=== PATIENT | female | born 1975 | race Caucasian/White ===

== ENCOUNTER 2016-04-07 17:09 | Emergency (ER) | payer OTHER ==
[~2016-04-07] VITALS: Ht 167.6 cm; Wt 77.1 kg
--- NOTE | 2016-04-07 17:36 | ED GI/GU/ABDOMINAL COMPLAINT ---
History of Present Illness General Chief Complaint: Abdominal Pain/Flank Pain Stated Complaint: LEFT FLANK PAIN Source: patient, old records Exam Limitations: no limitations Vital Signs & Intake/Output Vital Signs & Intake/Output Vital Signs Date Time Temp Pulse Resp B/P Pulse O2 O2 Flow FiO2 Ox Delivery Rate 04/07 2011 96.7 87 18 118/78 95 Room Air 04/07 1919 97.0 83 18 126/71 99 Room Air 04/07 1811 Room Air 04/07 1723 97.9 85 16 139/83 100 Room Air Allergies Coded Allergies: coconut (throat closes 09/05/15) morphine (GI DISTRESS 09/08/15) Reconcile Medications Fluoxetine HCl 40 MG CAPSULE 40 MG PO DAILY MENTAL HEALTH (Reported) Ondansetron HCl (Zofran) 4 MG TABLET 1 TAB PO Q6-8P PRN nausea Oxycodone HCl/Acetaminophen (Percocet 5-325 MG Tablet) 5 MG-325 MG TABLET 1 TAB PO TID PRN PAIN Triage Note: PT HAVING SHARP PAIN LEFT SIDE WITH HX OF KIDNEY STONES. PT STATES IT FEELS LIKE ITS KIDNEY STONES PT STATES SHE FEELS LIKE SHE IS GOING TO VOMIT. Triage Nurses Notes Reviewed? yes LMP (ages 10-50): now ? N Is pt currently ? No Onset: Abrupt Duration: day(s): (1), constant, waxing and waning Timing: recent history Quality/Severity: aching, mild, moderate, sharpness Severity Numbers: 7 Location: left flank Radiation: LLQ Activities at Onset: none Prior Abdominal Problems: similar symptoms HPI: 40-year-old female with history of kidney stones which have passed on their own presents complaining of sudden onset left flank pain rating to the left lower quadrant since earlier today area G denies any recent injury or trauma and states this feels similar to her kidney stones. She also reports to nausea no vomiting no diarrhea no urinary symptoms. Her menstrual cycle began today as scheduled. She denies any abnormal vaginal discharge no fever no chills. She has not attempted to take anything for her symptoms. No history of abdominal surgeries in the past no chest pain or shortness of breath or chills. (DARNELL GALLEGOS,LAUREN) Past History Travel History Traveled to [place] past 21 day No Medical History Any Pertinent Medical History? see below for history Neurological: migraine Renal: KIDNEY STONES JOY LOADER/Reproductive: POST DEPRESSION Surgical History Surgical History: non-contributory Psychosocial History What is your primary language Thai Tobacco Use: Never used ETOH Use: denies use Illicit Drug Use: denies illicit drug use Family History Hx Contributory? No (LAUREN CAMP) Review of Systems Review of Systems Constitutional: Reports: see HPI. All Other Systems: Reviewed and Negative Comments Review of systems: See HPI, All other systems negative. Constitutional, no chills no fever, no malaise HEENT: no sore throat no congestion Cardiovascular: No chest pain , no palpitation Skin, no jaundice no rashes, no change in skin Respiratory: No dyspnea no cough no sputum GI: nausea no vomiting, no diarrhea, : No dysuria Muscle skeletal: No joint pain, no back pain, no neck pain, Neurologic: No numbness no headache Psych: No stress Heme/endocrine: No bruising no bleeding Immunology: No lymphadenopathy, (LAUREN CAMP) Physical Exam Physical Exam General Appearance: well developed/nourished, no apparent distress, alert, awake Gastrointestinal: soft, non-tender Comments: Well-developed well-nourished person in no acute distress HEENT: Normal EENT exam; PERRL, EOMI, HEAD is atraumatic. moist mucous membranes. Neck: Supple, normal range of motion Back: Nontender, no CVA tenderness. Full range of motion Cardiovascular: Regular rate and rhythms no murmurs rubs Respiratory: No respiratory distress. Patient speaking in full complete sentences. Breath sounds clear to auscultation bilaterally: NO W/R/R Abdomen: Soft, nontender nondistended, no appreciable organomegaly. Normal bowel sounds. No rebound/guarding, Extremity: No edema, full range of motion of extremities Neuro: Alert oriented x3, motor sensory normal, There were no obvious focal neurologic abnormalities. Skin: No appreciable rash on exposed skin, skin is warm and dry. Psych: Mood and affect is normal, memory and judgment is normal. Core Measures ACS in differential dx? No Severe Sepsis Present: No Septic Shock Present: No (LAUREN CAMP) Progress Differential Diagnosis: appendicitis, biliary colic, bowel obstruction, colon cancer, diverticulitis, gastritis, hepatitis, inflamm bowel dis, kidney stone, pancreatitis, peptic ulcer, UTI/pyelo Plan of Care: Orders Procedure Date/time Status LIPASE 01/11 1745 Complete AMYLASE 04/07 1744 Complete HUMAN BETA HCG SCREEN 04/07 173 Complete COMPREHENSIVE METABOLIC PANEL 04/07 173 Complete CBC WITHOUT DIFFERENTIAL 04/07 1735 Complete URINALYSIS 04/07 1726 Complete Laboratory Tests 04/07/16 1935: Urine Color STRAW, Urine Clarity CLEAR, Urine pH 6.5, Ur Specific [place] 1.015, Urine Protein NEG, Urine Ketones NEG, Urine Nitrite NEG, Urine Bilirubin NEG, Urine Urobilinogen 0.2, Ur Leukocyte Esterase NEG, Ur Microscopic SEDIMENT EXAMINED, Urine RBC 15-25 H, Ur Epithelial Cells RARE, Urine Hemoglobin LARGE H, Urine Glucose NEG 04/07/16 1745: Anion Gap 14, Estimated GFR > 60, BUN/Creatinine Ratio 22.5, Glucose 143 H, Calcium 9.7, Total Bilirubin 0.3, AST 17, ALT 14, Alkaline Phosphatase 85, Total Protein 7.5, Albumin 4.6, Globulin 2.9, Albumin/Globulin Ratio 1.6, Amylase 34, Lipase 40, Total Beta HCG NEGATIVE, CBC w Diff NO MAN DIFF REQ, RBC 4.09 L, MCV 84.3, MCH 28.4, RDW 13.0, MPV 7.2 L, Gran % 75.6 H, Lymphocytes % 18.6 L, Monocytes % 4.8, Eosinophils % 0.6, Basophils % 0.4, Absolute Granulocytes 5.3, Absolute Lymphocytes 1.3, Absolute Monocytes 0.3, Absolute Eosinophils 0, Absolute Basophils 0, PUBS MCHC 33.7 04/07/16 1741: Amylase Cancelled, Lipase Cancelled Labs ordered old records reviewed patient medicated with Toradol 30 IV IV fluids 04/07/2016 7:33:55 PM casing CAT scan was reviewed and discussed with Dr. Dumont. I discussed the patient her CAT scan results she feels improved with the Toradol. We will by mouth challenge her, if symptoms are improved she will follow up with urology in the morning 04/07/2016 8:09:11 PM patient feeling improved with Percocet, tolerating by mouth she'll follow with Dr. Espitia tomorrow (LAUREN CAMP) Diagnostic Imaging: Viewed by Me: CT Scan. Discussed w/RAD: CT Scan. Radiology Impression: PATIENT: EFE HORNER PRESENT AGE: 40 PATIENT ACCOUNT NO: [id number] : 77 LOCATION: [facility] ([place]) ORDERING PHYSICIAN: LAUREN GALLEGOS SERVICE DATE: 04/07/16 EXAM TYPE: CAT - CT ABD & PELVIS W/O IV CONTRAS EXAMINATION: CT ABDOMEN AND PELVIS WITHOUT CONTRAST CLINICAL INFORMATION: 40-year-old female with left flank pain. COMPARISON: None. TECHNIQUE: Multidetector volumetric imaging was performed from the superior aspect of the liver through the pubic symphysis. Sagittal and coronal reformatted images were obtained on the technologist's workstation. DLP: 393 mGy -cm. FINDINGS: Green Belt view shows a 1 cm calculus in the vicinity of the left kidney. LUNG BASES: The visualized lung bases are unremarkable. LIVER, GALLBLADDER, AND BILIARY TREE: The liver is normal in size, shape, and attenuation. No focal hepatic lesion or biliary ductal dilatation is present. The gallbladder is normal in size demonstrating no signs of inflammation. However, 2 punctate gallstones are present in the gallbladder lumen. PANCREAS: Unremarkable. SPLEEN: Unremarkable. A small accessory spleen is present in the splenic hilum. ADRENAL GLANDS: Unremarkable. KIDNEYS AND URETERS: Right kidney is normal except for a tiny nonobstructing punctate stone in the upper pole. Perirenal spaces are normal. The left kidney shows moderate hydronephrosis and hydroureter . The obstruction is thought to be caused by a tiny 3 mm stone just proximal to the left UVJ. The visualization of this particular stone is complicated by the presence of numerous phleboliths in the area; interpretation therefore is challenging. A 1.2 cm calculus is located in the left renal pelvis. 3 additional punctate nonobstructing stones are present in the left kidney, upper pole, midportion, and lower pole respectively. BLADDER: Unremarkable. No stones. GASTROINTESTINAL TRACT: The small and large bowel are unremarkable. The appendix is unremarkable. ABDOMINAL WALL: No significant hernia is appreciated. LYMPH NODES: Normal. VASCULAR: Unremarkable. PELVIC VISCERA: Unremarkable. A tampon is present in the vagina. OSSEOUS STRUCTURES: Unremarkable. IMPRESSION: 1. Moderate left-sided hydroureteronephrosis thought to be secondary to a 3 mm calculus just proximal to the left UVJ. 2. Large (1.2 cm) renal calculus in the left renal pelvis. This is visualized on the plain film. Three additional punctate stones in the left kidney. 3. Cholelithiasis. DICTATED BY: CORWIN ALLAN MD DATE/TIME DICTATED:04/07/161858 AWNING ERECTOR:JUNE DATE/ TIME TRANSCRIBED:04/07/161858 CONFIDENTIAL, DO NOT COPY WITHOUT APPROPRIATE AUTHORIZATION. <Electronically signed in Other Vendor System> SIGNED BY: CORWIN ALLAN MD 04/07/161915 Initial ED EKG: none (LAUREN CAMP) Departure Departure Time of Disposition: 2000 Disposition: HOME OR SELF CARE Condition: Stable Clinical Impression Primary Impression: Kidney stone Referrals: LUCERO GERMAN DO (PCP/Family) MARIANNE ESPITIA MD Additional Instructions: follow up with urologist dr espitia tomorrow. percocet for breakthrough pain- use caution as this is a narcotic and will make you drowsy no driving or drinking alcohol while taking. Motrin 800 mg every 8 hours as needed Zofran as needed for nausea. These prescriptions were sent to your pharmacy. Return anytime sooner if symptoms worsen or U have any other concerns Departure Forms: Customer Survey General Discharge Information Prescriptions: Current Visit Scripts Oxycodone HCl/Acetaminophen (Percocet 5-325 MG Tablet) 1 TAB PO TID PRN PAIN #10 TAB Ondansetron HCl (Zofran) 1 TAB PO Q6-8P PRN nausea #10 TAB (LAUREN CAMP) PA/MINERAL RESOURCES INSPECTOR Co-Sign Statement Statement: ED Attending supervision documentation- [] I saw and evaluated the patient. I have also reviewed all the pertinent lab results and diagnostic results. I agree with the findings and the plan of care as documented in the PA's/MINERAL RESOURCES INSPECTOR's documentation. [X] I have reviewed the ED Record and agree with the PA's/MINERAL RESOURCES INSPECTOR's documentation. [] Additions or exceptions (if any) to the PAs/MINERAL RESOURCES INSPECTOR's note and plan are summarized below: [] (MONTY ANAYA,NALLELY Pelletier)
[2016-04-07 17:56] LABS: ABSOLUTE BASOPHIL COUNT 0 /CUMM (0.0-0.2); ABSOLUTE EOSINOPHIL COUNT 0 /CUMM (0.0-0.7); ABSOLUTE GRANULOCYTE CT 5.3 /CUMM (1.4-6.5); ABSOLUTE LYMPH COUNT 1.3 /CUMM (1.2-3.4); ABSOLUTE MONOCYTE COUNT 0.3 /CUMM (0.10-0.60); BASOPHIL % 0.4 % (0.0-2.0); EOSINOPHIL % 0.6 % (0-5); GRANULOCYTE % 75.6 % (42.2-75.2); HEMATOCRIT 34.5 % (37-47); MEAN CORPUSCULAR HGB 28.4 PG (27.0-31.0); MEAN CORPUSCULAR HGB CONC 33.7 G/DL (33.0-37.0); MEAN CORPUSCULAR VOLUME 84.3 FL (81.0-99.0); MEAN PLATELET VOLUME 7.2 FL (7.4-10.4); PLATELET COUNT 373 /CUMM (130-400); RED BLOOD CELL CT 4.09 /CUMM (4.20-5.40); WHITE BLOOD CELL COUNT 7.1 /CUMM (4.8-10.8)
--- NOTE | 2016-04-07 19:16 | CT SCAN REPORT ---
EXAMINATION: CT ABDOMEN AND PELVIS WITHOUT CONTRAST CLINICAL INFORMATION: 40-year-old female with left flank pain. COMPARISON: None. TECHNIQUE: Multidetector volumetric imaging was performed from the superior aspect of the liver through the pubic symphysis. Sagittal and coronal reformatted images were obtained on the technologist's workstation. DLP: 393 mGy-cm. FINDINGS: Carriage Setter view shows a 1 cm calculus in the vicinity of the left kidney. LUNG BASES: The visualized lung bases are unremarkable. LIVER, GALLBLADDER, AND BILIARY TREE: The liver is normal in size, shape, and attenuation. No focal hepatic lesion or biliary ductal dilatation is present. The gallbladder is normal in size demonstrating no signs of inflammation. However, 2 punctate gallstones are present in the gallbladder lumen. PANCREAS: Unremarkable. SPLEEN: Unremarkable. A small accessory spleen is present in the splenic hilum. ADRENAL GLANDS: Unremarkable. KIDNEYS AND URETERS: Right kidney is normal except for a tiny nonobstructing punctate stone in the upper pole. Perirenal spaces are normal. The left kidney shows moderate hydronephrosis and hydroureter . The obstruction is thought to be caused by a tiny 3 mm stone just proximal to the left UVJ. The visualization of this particular stone is complicated by the presence of numerous phleboliths in the area; interpretation therefore is challenging. A 1.2 cm calculus is located in the left renal pelvis. 3 additional punctate nonobstructing stones are present in the left kidney, upper pole, midportion, and lower pole respectively. BLADDER: Unremarkable. No stones. GASTROINTESTINAL TRACT: The small and large bowel are unremarkable. The appendix is unremarkable. ABDOMINAL WALL: No significant hernia is appreciated. LYMPH NODES: Normal. VASCULAR: Unremarkable. PELVIC VISCERA: Unremarkable. A tampon is present in the vagina. OSSEOUS STRUCTURES: Unremarkable. IMPRESSION: 1. Moderate left-sided hydroureteronephrosis thought to be secondary to a 3 mm calculus just proximal to the left UVJ. 2. Large (1.2 cm) renal calculus in the left renal pelvis. This is visualized on the plain film. Three additional punctate stones in the left kidney. 3. Cholelithiasis.
[2016-04-07] MEDS ORDERED: FLUOXETINE HCL40 M1 PO (19:40)
[2016-04-07] MEDS ORDERED: PERCOCET 5-3251 EACH PO (20:07)
[2016-04-07] MEDS ORDERED: ZOFRAN4 M2 PO (20:08)
[2016-04-07 20:12] VITALS: BP 118/78
== END 2016-04-07 20:31 ==
LOC: ERH 17:09
PROVIDERS: Physician Assistant Medical
DX: N20.0 Calculus of kidney (principal)
CPT/HCPCS: 74176; 81001; 96361; 96374; 96375; J1885; J2405

== ENCOUNTER → 2016-06-14 | Day surgery (SDC) | payer OTHER ==
[~2016-06-14] VITALS: Ht 167.6 cm; Wt 75.7 kg
[~2016-06-14] MED LIST: FLUOXETINE HCL40 M1 PO; IBUPROFEN800 M1 PO; PERCOCET 5-3251 EACH PO; ZOFRAN ODT4 M1 SL; ZOFRAN4 M2 PO
--- NOTE | 2016-06-14 09:39 | Operative Report ---
Operative/Inv Procedure Report Surgery Date: 06/14/16 Name of Procedure: L renal ESWL Pre-Operative Diagnosis: L renal calculus Post-Operative Diagnosis: same Estimated Blood Loss: scant Surgeon/Wax Machine Operator: JOAN Payan MD,ALIE Gautam Anesthesia: local monitored anesthesi Drains: none Specimens: none Complications: none Condition: stable Operative Indication: 1.2 cm L renal calculus Operative/Procedure Note Note: The patient was taken to the OR and identified. She was placed in the supine position on the lithotripsy table. A time out was executed appropriately. The stone was localized to the F2 focal point using flouroscopy. IV sedation was given. The treatment was begun. The energy level was low at first and increased to maximum for a renal stone. A total of 2500 shocks were given. The stone did appear to fragment at least partially. Following the procedure she was taken to [facility] in stable condition Findings: 1.2 cm L renal calculus with fragmentation with treatment
== END ==
LOC: STS 05-17 07:00
DX: N20.0 Calculus of kidney (principal)
CPT/HCPCS: 81025; J0131; J0690; J2250

== ENCOUNTER 2016-06-15 03:16 | Emergency (ER) | payer OTHER ==
[~2016-06-15] VITALS: Ht 167.6 cm; Wt 65.8 kg
[~2016-06-15 03:16] MED LIST changes: -IBUPROFEN800 M1 PO; -ZOFRAN ODT4 M1 SL
--- NOTE | 2016-06-15 03:25 | ED GI/GU/ABDOMINAL COMPLAINT ---
History of Present Illness General Chief Complaint: Abdominal Pain/Flank Pain Stated Complaint: KIDNEY STONE/ABD PAIN Source: patient, EMS Exam Limitations: no limitations Vital Signs & Intake/Output Vital Signs & Intake/Output Vital Signs Date Time Temp Pulse Resp B/P Pulse O2 O2 Flow FiO2 Ox Delivery Rate 06/15 0532 97.2 74 18 133/77 100 Room Air 06/15 0340 97.6 75 18 124/73 97 Room Air Allergies Coded Allergies: coconut (throat closes 09/05/15) morphine (GI DISTRESS 09/08/15) Reconcile Medications Fluoxetine HCl 40 MG CAPSULE 40 MG PO DAILY MENTAL HEALTH (Reported) Ibuprofen 800 MG TABLET 1 TAB PO TID PRN PAIN Ondansetron (Zofran Odt) 4 MG TAB.RAPDIS 1 TAB SL TID PRN NAUSEA Oxycodone HCl/Acetaminophen (Percocet 5-325 MG Tablet) 5 MG-325 MG TABLET 1 TAB PO 4XDP PRN PAIN TEN...[id number] Triage Note: PT BIBA S/P HAVING A L KIDNEY STONE BLASTED YESTERDAY. PT TOOK MULTIPLE PERCOCETS WITHOUT RELIEF. REPORTS VOMITING WELL SINCE. UPON ARRIVAL LOOKS PALE, ABD DISTENDED. Triage Nurses Notes Reviewed? yes ? n Is pt currently ? No Onset: Gradual Duration: day(s): Timing: recent history Location: left flank Radiation: LLQ Activities at Onset: lithotripsy yesterday Modifying Factors: Worsens With: urinating, vomiting. Associated Symptoms: abdominal pain, nausea/vomiting HPI: 40 yo woman h/o lithrotripsy yesterday at 8am, presents with worsening pain, nausea and vomiting for the past 24 hours. "I can 't keep anything down." She also notes left pain pain radiating to left lower quadrant. No fever, chills, dyspnea, chest pain. Past History Travel History Traveled to [place] past 21 day No Medical History Any Pertinent Medical History? see below for history Neurological: migraine Renal: KIDNEY STONES INTENSIVE CARE UNIT REGISTERED NURSE/Reproductive: POST DEPRESSION Surgical History Surgical History: non-contributory Psychosocial History What is your primary language Liberian Tobacco Use: Never used ETOH Use: occasional use Family History Hx Contributory? No Review of Systems Review of Systems Constitutional: Reports: no symptoms. EENTM: Reports: no symptoms. Respiratory: Reports: no symptoms. Cardiovascular: Reports: no symptoms. GI: Reports: no symptoms. Genitourinary: Reports: no symptoms. Musculoskeletal: Reports: no symptoms. Skin: Reports: no symptoms. Neurological/Psychological: Reports: no symptoms. Hematologic/Endocrine: Reports: no symptoms. Immunologic/Allergic: Reports: no symptoms. All Other Systems: Reviewed and Negative Physical Exam Physical Exam General Appearance: well developed/nourished, mild distress, moderate distress Head: atraumatic, normal appearance Eyes: Bilateral: normal appearance. Ears, Nose, Throat, Mouth: hearing grossly normal Neck: normal inspection Respiratory: normal breath sounds Cardiovascular: regular rate/rhythm Gastrointestinal: normal bowel sounds, soft, mild tenderness in left flank to palpation. no rebound. no guarding. Back: CVA tenderness (L) Extremities: normal range of motion, evidence of injury Neurologic/Psych: no motor/sensory deficits, awake, alert, oriented x 3 Skin: intact, normal color, warm/dry Core Measures ACS in differential dx? No Severe Sepsis Present: No Septic Shock Present: No Progress Differential Diagnosis: kidney stone, UTI/pyelo, renal colic vs other. Plan of Care: Orders Procedure Date/time Status URINALYSIS 06/15 325 Complete LIPASE 06/15 325 Complete COMPREHENSIVE METABOLIC PANEL 06/15 325 Complete CBC WITHOUT DIFFERENTIAL 06/15 325 Complete AMYLASE 06/15 325 Complete Current Medications Sig/Saba Start time Last Medication Dose Stop Time Status Admin Hydromorphone HCl 1 MG ONCE ONE 06/15 0600 UNVr (Dilaudid) 06/15 0601 Laboratory Tests 06/15/16 0528: Urine Color STRAW, Urine Clarity CLDY H, Urine pH 7.5, Ur Specific [place] 1.015, Urine Protein TRACE H, Urine Ketones NEG, Urine Nitrite NEG, Urine Bilirubin NEG, Urine Urobilinogen 0.2, Ur Leukocyte Esterase SMALL H, Ur Microscopic SEDIMENT EXAMINED, Urine RBC 25-50 H, Urine WBC 5-10 H, Ur Epithelial Cells MANY H, Urine Bacteria FEW H, Urine Hemoglobin LARGE H, Urine Glucose 250 H 06/15/16 0351: Anion Gap 14, Estimated GFR > 60, BUN/Creatinine Ratio 21.3, Glucose 151 H, Calcium 10.0, Total Bilirubin 0.6, AST 25, ALT 24, Alkaline Phosphatase 78, Total Protein 7.7, Albumin 4.8, Globulin 2.9, Albumin/Globulin Ratio 1.7, Amylase < 30 L, Lipase 31, CBC w Diff MAN DIFF ORDERED, RBC 4.17 L, MCV 85.4, MCH 28.2, RDW 12.2, MPV 7.6, Gran % 96.3 H, Lymphocytes % 3.2 L, Monocytes % 0.4 L, Eosinophils % 0, Basophils % 0.1, Absolute Granulocytes 16.0 H, Segmented Neutrophils 92 H, Band Neutrophils 2, Absolute Lymphocytes 0.5 L, Lymphocytes 4 L, Monocytes 2, Absolute Monocytes 0.1 L, Absolute Eosinophils 0 , Absolute Basophils 0, Platelet Estimate ADEQUATE, Polychromasia 1+, Poikilocytosis 1+, Ovalocytes 1+, Stomatocytes FEW, PUBS MCHC 33.0, Fld Total RBCs Counted 100 Diagnostic Imaging: Viewed by Me: CT Scan. Discussed w/RAD: CT Scan. Radiology Impression: abd/pelvic ct... 3x6mm stone in distal left ureter... full report below. Initial ED EKG: none Comments: PATIENT: EFE HORNER PRESENT AGE: 40 PATIENT ACCOUNT NO: [id number] : 77 LOCATION: [facility] ORDERING PHYSICIAN: JOSE MARIA PHILLIPS MD SERVICE DATE: 06/15/16 EXAM TYPE: CAT - CT ABD & PELVIS W/O IV CONTRAS EXAMINATION: CT ABDOMEN AND PELVIS WITHOUT CONTRAST CLINICAL INFORMATION: Left flank pain. Status post lithotripsy. COMPARISON: CT scan abdomen pelvis 04/07/2016 renal ultrasound 04/15/2016. Plain film abdomen 04/15/2016 TECHNIQUE: Multidetector volumetric imaging was performed from the superior aspect of the liver through the pubic symphysis. Sagittal and coronal reformatted images were obtained on the technologist's workstation. DLP: 428.2 mGy-cm FINDINGS: LUNG BASES: The visualized lung bases are unremarkable. LIVER, GALLBLADDER, AND BILIARY TREE: The liver is normal in size, shape, and attenuation. No focal hepatic lesion or biliary ductal dilatation is present. The gallbladder is unremarkable with no evidence of radiopaque gallstones, gallbladder wall thickening, or obvious pericholecystic inflammatory changes. PANCREAS: Unremarkable. SPLEEN: Unremarkable. ADRENAL GLANDS: Unremarkable. KIDNEYS AND URETERS: There is hydronephrosis of left kidney with dilatation of renal pelvis calyces and the ureter. There is edema around the renal pelvis and ureter. The severity of the hydronephrosis is greater than was present on the CAT scan of 04/07/2016. There is an elongated stone in the distal left ureter. This measures 3 cm of length by 6 mm AP. This is consistent with multiple stone fragments collecting in the distal left ureter. Again seen are multiple calcifications representing phleboliths in the lower pelvis similar CAT scan of 04/07/2016. There are also stones still present in the left kidney. In the upper pole there is a couple 1 to 2 mm stones. In the lower pole there is a stone measuring 9mm. There is also a 5mm and a 2 mm stone in the lower pole. Couple additional less than 1 mm stones of the mid lower pole as well. No stone in the right kidney or ureter. No hydronephrosis the right kidney. BLADDER: Unremarkable. GASTROINTESTINAL TRACT: The small and large bowel are unremarkable. The appendix is unremarkable. ABDOMINAL WALL: No significant hernia is appreciated. LYMPH NODES: Normal. VASCULAR: Unremarkable. PELVIC VISCERA: Uterus is anteverted. No adnexal abnormality. OSSEOUS STRUCTURES: Unremarkable. IMPRESSION: Hydronephrosis of the left kidney. This is due to a 3 x 0.6 cm stone in the distal left ureter. There are additional nonobstructive calculi in the left kidney. DICTATED BY: DANA BRITO MD DATE/TIME DICTATED:06/15/16426 DIGITAL ASSET COORDINATOR:JUNE DATE/TIME TRANSCRIBED:06/15/16426 CONFIDENTIAL, DO NOT COPY WITHOUT APPROPRIATE AUTHORIZATION. <Electronically signed in Other Vendor System> SIGNED BY: DANA BRITO MD 06/15/16 044 Departure Departure Disposition: HOME OR SELF CARE Condition: Stable Clinical Impression Primary Impression: Renal colic on left side Referrals: LUCERO GERMAN DO (PCP/Family) Departure Forms: Customer Survey General Discharge Information Prescriptions: Current Visit Scripts Oxycodone HCl/Acetaminophen (Percocet 5-325 MG Tablet) 1 TAB PO 4XDP PRN PAIN #10 TAB TEN...[id number] Ibuprofen 1 TAB PO TID PRN PAIN #60 TAB Ondansetron (Zofran Odt) 1 TAB SL TID PRN NAUSEA #10 TAB Ref 1 Comments 06/15/16, 6am... pt feeling better after supportive medications.... ct scan shows 6x3mm stone... pt safe for discharge... will follow up with dr. mclaughlin today.
[2016-06-15 04:09] LABS: ABSOLUTE BASOPHIL COUNT 0 /CUMM (0.0-0.2); ABSOLUTE EOSINOPHIL COUNT 0 /CUMM (0.0-0.7); ABSOLUTE LYMPH COUNT 0.5 /CUMM (1.2-3.4); ABSOLUTE MONOCYTE COUNT 0.1 /CUMM (0.10-0.60); BASOPHIL % 0.1 % (0.0-2.0); EOSINOPHIL % 0 % (0-5); GRANULOCYTE % 96.3 % (42.2-75.2); HEMATOCRIT 35.6 % (37-47); MEAN CORPUSCULAR HGB 28.2 PG (27.0-31.0); MEAN CORPUSCULAR VOLUME 85.4 FL (81.0-99.0); MEAN PLATELET VOLUME 7.6 FL (7.4-10.4); PLATELET COUNT 346 /CUMM (130-400); RBC DISTRIBUTION WIDTH 12.2 % (11.5-14.5); RED BLOOD CELL CT 4.17 /CUMM (4.20-5.40); WHITE BLOOD CELL COUNT 16.6 /CUMM (4.8-10.8)
--- NOTE | 2016-06-15 04:47 | CT SCAN REPORT ---
EXAMINATION: CT ABDOMEN AND PELVIS WITHOUT CONTRAST CLINICAL INFORMATION: Left flank pain. Status post lithotripsy. COMPARISON: CT scan abdomen pelvis 04/07/2016 renal ultrasound 04/15/2016. Plain film abdomen 04/15/2016 TECHNIQUE: Multidetector volumetric imaging was performed from the superior aspect of the liver through the pubic symphysis. Sagittal and coronal reformatted images were obtained on the technologist's workstation. DLP: 428.2 mGy-cm FINDINGS: LUNG BASES: The visualized lung bases are unremarkable. LIVER, GALLBLADDER, AND BILIARY TREE: The liver is normal in size, shape, and attenuation. No focal hepatic lesion or biliary ductal dilatation is present. The gallbladder is unremarkable with no evidence of radiopaque gallstones, gallbladder wall thickening, or obvious pericholecystic inflammatory changes. PANCREAS: Unremarkable. SPLEEN: Unremarkable. ADRENAL GLANDS: Unremarkable. KIDNEYS AND URETERS: There is hydronephrosis of left kidney with dilatation of renal pelvis calyces and the ureter. There is edema around the renal pelvis and ureter. The severity of the hydronephrosis is greater than was present on the CAT scan of 04/07/2016. There is an elongated stone in the distal left ureter. This measures 3 cm of length by 6 mm AP. This is consistent with multiple stone fragments collecting in the distal left ureter. Again seen are multiple calcifications representing phleboliths in the lower pelvis similar CAT scan of 04/07/2016. There are also stones still present in the left kidney. In the upper pole there is a couple 1 to 2 mm stones. In the lower pole there is a stone measuring 9mm. There is also a 5mm and a 2 mm stone in the lower pole. Couple additional less than 1 mm stones of the mid lower pole as well. No stone in the right kidney or ureter. No hydronephrosis the right kidney. BLADDER: Unremarkable. GASTROINTESTINAL TRACT: The small and large bowel are unremarkable. The appendix is unremarkable. ABDOMINAL WALL: No significant hernia is appreciated. LYMPH NODES: Normal. VASCULAR: Unremarkable. PELVIC VISCERA: Uterus is anteverted. No adnexal abnormality. OSSEOUS STRUCTURES: Unremarkable. IMPRESSION: Hydronephrosis of the left kidney. This is due to a 3 x 0.6 cm stone in the distal left ureter. There are additional nonobstructive calculi in the left kidney.
[2016-06-15 05:32] VITALS: BP 133/77
[2016-06-15] MEDS ORDERED: ZOFRAN ODT4 M1 SL (05:59)
[2016-06-15] MEDS ORDERED: IBUPROFEN800 M1 PO (05:59)
[2016-06-15] MEDS ORDERED: PERCOCET 5-3251 EACH PO (05:59)
== END 2016-06-15 06:23 ==
LOC: ERH 03:16
PROVIDERS: Pediatrics
DX: N23 Unspecified renal colic (principal)
CPT/HCPCS: 74176; 81001; 96361; 96374; 96375; 96376; J1885; J2405

== ENCOUNTER → 2016-06-17 | Day surgery (SDC) | payer OTHER ==
[~2016-06-17] VITALS: Ht 167.6 cm; Wt 75.7 kg
[~2016-06-17] MED LIST changes: +IBUPROFEN800 M1 PO; +ZOFRAN ODT4 M1 SL
--- NOTE | 2016-06-17 14:50 | Operative Report ---
Operative/Inv Procedure Report Surgery Date: 06/17/16 Name of Procedure: Cystoscopy, left ureteroscopy, laser lithotripsy of left ureteral stones, left retrograde pyelogram, basket extraction of left ureteral stone fragments, insertion of left double-J ureteral stent Pre-Operative Diagnosis: Left distal ureteral Steinstrasse Post-Operative Diagnosis: Same Estimated Blood Loss: scant Surgeon/Crate Icer: cShuyler FRANCO MD,ALIE Gautam Anesthesia: laryngeal mask airway Drains: 28 cm 6 [place] left double-J ureteral stent in the upper pole moiety of a partially duplicated left renal collecting system Specimens: Left ureteral stone fragment Complications: None Condition: Stable Operative Indication: Left distal ureteral Steinstrasse 3 days following left renal ESWL Operative/Procedure Note Note: The patient was taken to the cystoscopy room and identified. She is placed supine position on the cystoscopy table. A timeout was executed appropriately with the patient awake. General anesthesia was induced via LMA. She was in place the dorsal lithotomy position and prepped and draped in usual fashion for cystoscopy. Surgical pause was executed appropriately. A fluoroscopy images taken with a marker on the left side of the abdomen to confirm the correct side of the surgery as well as the correct orientation of the fluoroscopy image. The 22 [place] cystoscope sheath was placed in the bladder and cystoscopy was performed. The bladder was normal. Ureteral orifices were normal in location and appearance. Left ureteral orifice was intubated with a guidewire which was advanced up to the level of the left kidney. Of note on fluoroscopy multiple stone fragments could be seen in the left distal ureter. The cystoscope was removed leaving the safety guidewire in place. A short rigid ureteroscope was advanced up the distal ureter. Multiple fairly sizable stone fragments were seen. A holmium laser fiber was used to fragment these into smaller pieces. At this point a spiral basket was used to extract the larger stone fragments in the left distal ureter. The remaining stone fragments were felt to be very small and would be passed spontaneously. The ureteroscope was advanced proximally. At the level of L5 it was noted that the 2 ureters came together enjoined. The guidewire was in the upper pole ureter. The ureteroscope was advanced up both of the ureters and no further stone fragments seen. Contrast was injected into the upper and the lower pole ureter. The ureteroscope was then removed. Cystoscope was back loaded onto the guidewire. Over the guidewire was placed 28 cm 6 [place] double-J stent. The guidewire was removed leaving this stent in place. The proximal end of the stent was coiled in the upper pole renal collecting system and the distal end was coiled in the bladder on the fluoroscopy images. Long suture was left attached at this point a stent. Patient tolerated the procedure well. At completion she was taken to the recovery room in stable condition. Findings: Multiple left distal ureteral calculi. 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
--- NOTE | 2016-06-18 08:26 | RADIOLOGY REPORT ---
EXAMINATION: XR ABDOMEN CLINICAL INDICATION: Multiple spot films from left ureteroscopy and lithotripsy and stent insertion. COMPARISON: CT abdomen pelvis 06/15/2016. TECHNIQUE: 24 spot films are submitted. 0.4 minutes of fluoroscopy time was provided. FINDINGS: These demonstrate that the left-sided collecting system is significantly duplicated. The duplication probably ends at the pelvic inlet although this is difficult to ascertain. At the end of the procedure, the internally dwelling double-J stent is present with its tip in the upper pole collecting system extending into the bladder. IMPRESSION: Multiple films as described above from left sided retrograde ureteroscopy.
== END ==
LOC: STS 01:59
DX: N20.1 Calculus of ureter (principal); Z87.442 Personal history of urinary calculi; Q62.5 Duplication of ureter; G43.909 Migraine, unspecified, not intractable, without status migrainosus
CPT/HCPCS: 74000; 81025; 82355; C2617; J0131; J0690; J2250; J2405